=== PATIENT | female | born 1995 | race Caucasian/White ===

== ENCOUNTER 2021-01-08 16:36 | Emergency (ER) | payer MEDICAID ==
[~2021-01-08] VITALS: Ht 137.2 cm; Wt 61.0 kg
[2021-01-08 16:46] VITALS: BP 108/77
== END 2021-01-08 17:26 | disposition left against medical advice (07) ==
LOC: ER 16:36
DX: Z53.21 Procedure and treatment not carried out due to patient leaving prior to being seen by health care provider (principal)